=== PATIENT | female | born 1975 | race Caucasian/White ===

== ENCOUNTER 2023-11-03 07:12 | Outpatient (CLI) | payer MEDICARE, BC, SELFPAY ==
--- NOTE | 2023-11-03 08:31 | W.ANESCHARGE ---
Anesthesia Charges Start Date/Time Anesthesia Start Date: 11/03/23 Anesthesia Start Time: 08:10 Stop Date/Time Anesthesia Stop Date: 11/03/23 Anesthesia Stop Time: 08:28
--- NOTE | 2023-11-03 08:38 | W.ANESCHARGE ---
Anesthesia Charges Start Date/Time Anesthesia Start Date: 11/03/23 Anesthesia Start Time: 08:10 Stop Date/Time Anesthesia Stop Date: 11/03/23 Anesthesia Stop Time: 08:28
== END 2023-11-03 07:13 | disposition home or self-care (01) ==
PROVIDERS: PCP Physician Assistant; Visit Provider Surgery
DX: R13.10 Dysphagia, unspecified (principal); K21.9 Gastro-esophageal reflux disease without esophagitis
CPT/HCPCS: 00731; 43239; 88305; 88341; 88342; J2704; J3490